=== PATIENT | female | born 1965 | race Caucasian/White ===

== ENCOUNTER 2023-04-19 12:29 | Emergency (ER) | payer BC, SELFPAY ==
[2023-04-19 12:31] VITALS: BP 150/100
--- NOTE | 2023-04-19 15:37 | ED.GENMED ---
History of Present Illness
General
Chief Complaint: Head Injury
Source: patient
Exam Limitations: none
Time Seen by Provider: 04/19/23 12:41
Nursing documentation reviewed up to this point in time: agreed with
Travel History
Have you had any contact with someone who has COVID-19?: No
Do you have any symptoms of coronavirus? Fever > 100 degrees, chills, cough, shortness of breath, sore throat, loss of taste or smell, muscle aches, or headache?: No
History of Present Illness
History of Present Illness:
Patient is a 57 old female who was holding her dog on a leash yesterday when the dog pulled and she fell back hitting the back of her head on a wooden deck step. She had no loss of conscious. He is on blood thinners. She does complain of some
ringing in her ears today. She does complain of soreness to the right head and her right fifth finger. She was sent by urgent care. She is on blood thinners. She denies any other injuries.
Past History
Past History
ED Past Medical History: None
ED Past Surgical History: Other
Social History
Tobacco: Non-smoker
Personal:
Living: with family
Review of Systems
Review of Systems
Allergies reviewed?: Yes
All Other Systems: ROS reviewed and negative except as documented in HPI and ROS
Constitutional: Reports no symptoms
EENT: Reports other (pt had ringing in ears )
ABD/GI: Denies nausea or vomiting
Musculoskeletal: Reports other (neck sore )
Skin: Reports no symptoms
Neurological: Reports headache; Denies dizzy, weakness or numbness
Hematologic/Lymphatic: Reports no symptoms
Psychiatric: Reports no symptoms
Phy Exam
General Physical Exam
General Presentation: no apparent distress
General age: appears stated age
General Skin: warm and dry
General Habitus: normal
General Mental: alert
General Hydration: appears well hydrated
Eye Exam
Eye Exam: PERRL and EOMI
Eye Exam General: PERRL: bilateral and EOM intact: bilateral
Pupil Exam: Bilateral: round and reactive
Neurological Exam
Neurological Exam: alert, oriented x3, no motor deficits and no sensory deficits
Allie Coma Scale
Eye Opening: Spontaneous
Verbal Response: Oriented
Motor Response: Obeys Commands
GCS Total Score: 15
Cerebellar
Cerebellar Function: normal finger to nose
Musculoskeletal Exam
Musculoskeletal Exam: full ROM and other (Superficial laceration to right posterior head no palpable hematoma no bony cervical thoracic or lumbar tenderness to)
Skin Exam
Skin Exam: normal color and warm/dry
Psychiatric Exam
Psychiatric Exam: normal mood/affect
Course
Orders/Labs/Results
Orders:
Orders
04/19/23 13:21
CT Head W/o Iv Contrast Urgent
Comment:
Reason For Exam: trauma
Finger(s)/Thumb 2 View Rt [CR Finger(s)/thumb Min 2 Vw Rt] Urgent
Comment:
Reason For Exam: trauma
Indicate Which Finger:: Little Finger
04/19/23 14:05
CT Cervical Spine W/o Iv Contr Urgent
Comment:
Reason For Exam: trauma
04/19/23 15:37
Splints/Slings/Crut- Treatment ONCE
Location: Right
Type of Splint: Aluminum Finger Splint
04/19/23 15:38
Vital Signs- Treatment ONCE
Frequency: Hourly
Vital Signs
Initial and Last Documented VS:
Initial Vital Signs
Temp Pulse Resp BP Pulse Ox
97.7 F 106 16 150/100 100
04/19/23 12:31 04/19/23 12:31 04/19/23 12:31 04/19/23 12:31 04/19/23 12:31
Last Documented Vital Signs
Temp Pulse Resp BP Pulse Ox
97.7 F 74 16 112/74 99
04/19/23 12:31 04/19/23 15:49 04/19/23 15:49 04/19/23 15:49 04/19/23 15:49
MDM/Problems Addressed
Differential Diagnosis Includes:
Not limited to head injury, concussion, finger sprain versus fracture
MDM/Problems Addressed:
Patient fell yesterday hitting the back of her head. No loss of consciousness no nausea has had mild intermittent ringing in her ears sent by urgent care. She lanes of mild soreness to her neck but no bony cervical tenderness. No hematoma to
head. She is awake alert no acute distress with a normal exam. Right fifth finger is swollen tender, positive fracture on x-ray. Will DC with splint ice Motrin outpatient Ortho follow-up. Discussed Tylenol Motrin for head injury. Patient with
very superficial abrasion does not need care. shots are utd.
*Radiology
Radiology exam reviewed: radiology read reviewed
*Pulse Oximetry
Patient hypoxic: no
*Critical Care Note
Total Time (30-74mins, 75-104mins- exclusive of procedures): Not Applicable
ED Attending Note
-
Portions of this chart may have been created with voice recognition software.� Occasional wrong word or��sound alike� substitutions may have occurred due to the inherent limitations of voice recognition software.
Discharge Plan
Departure
Patient Disposition: Home (Routine Discharge)
Date of Disposition: 04/19/23
Time of Disposition: 15:38
Patient with high blood pressure during this ER visit?: Yes
Discharge Problem:
Head injury
Instructions: Concussion, Adult (DC), Head Injury in Adults (DC), Finger Fracture (DC), BLOOD PRESSURE
Prescriptions:
No Action
amoxicillin 500 MG capsule
500 mg PO TID Qty: 42 0RF
Referrals:
Gabby Medina NP [Family Provider] -
Javi Madrid MD [Active] -
Activity Restrictions/Additional Instructions:
You may alternate between Tylenol and ibuprofen for headache.
Wear splint for support to wear splint finger. Keep elevate is much as possible. Ice the affected area for the first 24 hours 20 minutes at a time several times a day follow-up with orthopedics as discussed in the next several days.
Return if any worsening of symptoms
Interventions
Interventions:
*Risk Screen - Suicide Last Done: 04/19/23 12:54
*General Assessment Last Done: 04/19/23 12:31
*Neglect/Abuse Screening Last Done: 04/19/23 12:54
ED- Fall Risk Assessment Last Done: 04/19/23 12:54
*ED COVID-19 Vaccine History Last Done: 04/19/23 12:31
*Nursing Disposition Last Done: 04/19/23 15:49
ED- Neurological Assessment Last Done: 04/19/23 12:52
ED-Skin Assessment Last Done: 04/19/23 12:52
Discharge Date and Time
Discharge Date/Time: 04/19/23 15:49
[2023-04-19 15:49] VITALS: BP 112/74
== END 2023-04-19 15:49 | disposition home or self-care (01) ==
LOC: EMR 12:29
PROVIDERS: EMERGENCY PHYSICIAN Student in an Organized Health Care Education/Training Program; FAMILY PHYSICIAN Nurse Practitioner Family
DX: S09.90XA Unspecified injury of head, initial encounter (principal); S01.01XA Laceration without foreign body of scalp, initial encounter; S60.051A Contusion of right little finger without damage to nail, initial encounter; M79.89 Other specified soft tissue disorders; M54.2 Cervicalgia; R51.9 Headache, unspecified; H93.13 Tinnitus, bilateral; W10.8XXA Fall (on) (from) other stairs and steps, initial encounter; Y93.89 Activity, other specified; R03.0 Elevated blood-pressure reading, without diagnosis of hypertension
CPT/HCPCS: 99284; 29130; 70450; 72125; 73140

== ENCOUNTER → 2024-02-25 09:05 | Outpatient (REF) | payer OTHER, SELFPAY | LOC: RAD 09:05 | PROVIDERS: ATTENDING PHYSICIAN Obstetrics & Gynecology; FAMILY PHYSICIAN Family Medicine | DX: N95.0 Postmenopausal bleeding (principal) | CPT/HCPCS: 76830; 76856 ==

== ENCOUNTER → 2024-03-31 13:09 | Outpatient (REF) | payer OTHER, SELFPAY | LOC: WDC 13:09 | PROVIDERS: ATTENDING PHYSICIAN Obstetrics & Gynecology; FAMILY PHYSICIAN Family Medicine | DX: Z12.31 Encounter for screening mammogram for malignant neoplasm of breast (principal) | CPT/HCPCS: 77063; 77067 ==